=== PATIENT | male | born 1990 | race Caucasian/White ===

== ENCOUNTER 2018-04-03 09:23 | Emergency (ER) | payer MEDICAID ==
[~2018-04-03] VITALS: Ht 177.8 cm; Wt 62.6 kg
[2018-04-03] MEDS ORDERED: ALBU90OI61 INH (10:14)
[2018-04-03] MEDS ORDERED: ALBU90OI INH (11:06)
[2018-04-03] MEDS ORDERED: PRED20 PO (11:06)
== END 2018-04-03 11:12 | disposition home or self-care (01) ==
LOC: ER 09:23
DX: J45.901 Unspecified asthma with (acute) exacerbation (principal)
CPT/HCPCS: 99284

== ENCOUNTER 2018-04-16 12:05 | Emergency (ER) | payer OTHER ==
[~2018-04-16] VITALS: Ht 175.3 cm; Wt 63.5 kg
[~2018-04-16 12:05] MED LIST: ALBU90OI INH; ALBU90OI61 INH; PRED20 PO
== END 2018-04-16 14:12 | disposition home or self-care (01) ==
LOC: ER 12:05
DX: S87.82XA Crushing injury of left lower leg, initial encounter (principal); J45.909 Unspecified asthma, uncomplicated; Z87.891 Personal history of nicotine dependence; W23.0XXA Caught, crushed, jammed, or pinched between moving objects, initial encounter
CPT/HCPCS: 73590; 99283-25

== ENCOUNTER 2021-10-19 09:36 | Emergency (ER) | payer OTHER ==
[~2021-10-19] VITALS: Ht 177.8 cm; Wt 68.0 kg
[2021-10-19 10:50] LABS: BASOPHILS PERCENT AUTO 1 % (0-2); EOSINOPHILS ABSOLUTE AUTO 0.58 K/mm3 (0.00-0.68); EOSINOPHILS PERCENT AUTO 7 % (0-6); Hemoglobin 14.3 g/dL (13.5-17.5); IMMATURE GRAN ABSOLUTE AUTO 0.03 K/mm3 (0.00-0.10); IMMATURE GRAN PERCENT AUTO 0 % (0-1); LYMPHOCYTES ABSOLUTE AUTO 1.61 K/mm3 (0.84-5.20); LYMPHOCYTES PERCENT AUTO 20 % (21-46); MONOCYTES ABSOLUTE AUTO 0.69 K/mm3 (0.16-1.47); MONOCYTES PERCENT AUTO 9 % (4-13); Mean Corpuscular HGB 29.9 pg (26.0-34.0); Mean Corpuscular Volume 88 fL (80-100); Mean Platelet Volume 9.5 fL (9.1-12.4); NEUTROPHILS PERCENT AUTO 63 % (41-73); Platelet Count 259 K/mm3 (150-400); RDW Coefficient Variation 12.4 % (11.7-14.2); Red Blood Cell Count 4.79 M/mm3 (4.30-5.90); White Blood Cell Count 8.01 K/mm3 (4.00-11.30)
[2021-10-19 11:15] LABS: Albumin, Blood 3.7 g/dL (3.4-5.0); Albumin/Globulin Ratio 1.1 (0.8-1.8); Bilirubin, Total 0.5 mg/dL (0.1-1.0); Bun/Creatinine Ratio 14.2 (12.0-20.0); Calcium, Blood 8.6 mg/dL (8.5-10.1); Creatinine, Blood 1.06 mg/dL (0.60-1.20); Globulin, Blood 3.4 g/dL (2.2-4.0); Potassium, Blood 4.1 mmol/L (3.5-5.5); Total Protein, Blood 7.1 g/dL (6.4-8.2)
[2021-10-19] MEDS ORDERED: ONDA4ODT MM (11:57)
[2021-10-19] MEDS ORDERED: MECL25 PO (11:57)
== END 2021-10-19 12:06 | disposition home or self-care (01) ==
LOC: ER 09:36
PROVIDERS: Student in an Organized Health Care Education/Training Program
DX: J32.9 Chronic sinusitis, unspecified (principal); R42 Dizziness and giddiness; R11.0 Nausea; R68.83 Chills (without fever); R51.9 Headache, unspecified; J45.909 Unspecified asthma, uncomplicated; Z87.81 Personal history of (healed) traumatic fracture
CPT/HCPCS: 36415; 80053; 85025; A9270; J1885

== ENCOUNTER → 2021-12-30 | Outpatient (CLI) | payer OTHER ==
[~2021-12-30] MED LIST changes: +MECL25 PO; +ONDA4ODT MM
[2021-12-30 10:19] LABS: BASOPHILS PERCENT AUTO 1 % (0-2); EOSINOPHILS ABSOLUTE AUTO 0.58 K/mm3 (0.00-0.68); EOSINOPHILS PERCENT AUTO 8 % (0-6); Hematocrit 46.5 % (37.0-53.0); Hemoglobin 15.4 g/dL (13.5-17.5); IMMATURE GRAN ABSOLUTE AUTO 0.02 K/mm3 (0.00-0.10); IMMATURE GRAN PERCENT AUTO 0 % (0-1); LYMPHOCYTES ABSOLUTE AUTO 1.36 K/mm3 (0.84-5.20); LYMPHOCYTES PERCENT AUTO 20 % (21-46); MONOCYTES ABSOLUTE AUTO 0.59 K/mm3 (0.16-1.47); MONOCYTES PERCENT AUTO 9 % (4-13); Mean Corpuscular HGB 29.3 pg (26.0-34.0); Mean Corpuscular HGB Conc 33.1 g/dL (31.5-36.5); Mean Corpuscular Volume 89 fL (80-100); Mean Platelet Volume 9.6 fL (9.1-12.4); NEUTROPHILS ABSOLUTE AUTO 4.28 K/mm3 (1.96-9.15); NEUTROPHILS PERCENT AUTO 62 % (41-73); Platelet Count 274 K/mm3 (150-400); RDW Coefficient Variation 12.2 % (11.7-14.2); RDW Standard Deviation 39.8 fL (35.1-46.3); Red Blood Cell Count 5.25 M/mm3 (4.30-5.90); White Blood Cell Count 6.93 K/mm3 (4.00-11.30)
[2021-12-30 10:43] LABS: Albumin/Globulin Ratio 1.1 (0.8-1.8); Bilirubin, Total 0.4 mg/dL (0.1-1.0); Bun/Creatinine Ratio 15.4 (12.0-20.0); Calcium, Blood 9.2 mg/dL (8.5-10.1); Creatinine, Blood 1.04 mg/dL (0.60-1.20); Globulin, Blood 3.6 g/dL (2.2-4.0); Potassium, Blood 4.4 mmol/L (3.5-5.5); Total Protein, Blood 7.6 g/dL (6.4-8.2)
== END ==
LOC: LAB SHORT 09:07 → LAB 09:07
PROVIDERS: Nurse Practitioner Family
DX: R42 Dizziness and giddiness (principal); R31.9 Hematuria, unspecified
CPT/HCPCS: 80053; 83690; 83735; 85025; 87086

== ENCOUNTER → 2023-12-29 | Outpatient (CLI) | payer OTHER ==
[~2023-12-29] MED LIST changes: +CLAR500CR; +EFFEXOR XR37.5 MG PO; +ESCI20 PO; +HYDROXYZINE PAM25 MG PO
[2023-12-29 09:30] LABS: BASOPHILS ABSOLUTE AUTO 0.13 K/mm3 (0.00-0.23); BASOPHILS PERCENT AUTO 2 % (0-2); EOSINOPHILS ABSOLUTE AUTO 0.37 K/mm3 (0.00-0.68); EOSINOPHILS PERCENT AUTO 5 % (0-6); Hematocrit 46.4 % (37.0-53.0); Hemoglobin 16.5 g/dL (13.5-17.5); IMMATURE GRAN ABSOLUTE AUTO 0.03 K/mm3 (0.00-0.10); IMMATURE GRAN PERCENT AUTO 0 % (0-1); LYMPHOCYTES ABSOLUTE AUTO 1.85 K/mm3 (0.84-5.20); LYMPHOCYTES PERCENT AUTO 24 % (21-46); MONOCYTES ABSOLUTE AUTO 0.83 K/mm3 (0.16-1.47); MONOCYTES PERCENT AUTO 11 % (4-13); Mean Corpuscular HGB Conc 35.6 g/dL (31.5-36.5); Mean Corpuscular Volume 90 fL (80-100); NEUTROPHILS ABSOLUTE AUTO 4.63 K/mm3 (1.96-9.15); NEUTROPHILS PERCENT AUTO 59 % (41-73); Platelet Count 289 K/mm3 (150-400); RDW Coefficient Variation 12.4 % (11.7-14.2); RDW Standard Deviation 40.8 fL (35.1-46.3); Red Blood Cell Count 5.16 M/mm3 (4.30-5.90); White Blood Cell Count 7.84 K/mm3 (4.00-11.30)
[2023-12-29 09:39] LABS: Albumin, Blood 4.4 g/dL (3.4-5.0); Albumin/Globulin Ratio 1.1 (0.8-1.8); Bilirubin, Total 0.9 mg/dL (0.1-1.0); Bun/Creatinine Ratio 11.9 (12.0-20.0); Calcium, Blood 9.2 mg/dL (8.5-10.1); Creatinine, Blood 1.35 mg/dL (0.60-1.20); Globulin, Blood 3.9 g/dL (2.2-4.0); Potassium, Blood 3.8 mmol/L (3.5-5.5); Total Protein, Blood 8.3 g/dL (6.4-8.2)
== END | disposition home or self-care (01) ==
LOC: LAB SHORT 09:25 → LAB 09:25
PROVIDERS: Emergency Medicine
DX: R10.31 Right lower quadrant pain (principal); R31.9 Hematuria, unspecified
CPT/HCPCS: 80053; 83690; 85025; 87086

== ENCOUNTER → 2024-01-01 | Outpatient (CLI) | payer OTHER ==
[2024-01-01 18:41] LABS: Source, Urine Voided
[2024-01-01 19:46] LABS: Bacteria Rare /hpf; Squamous Epithelial Cells Rare /hpf (Few); White Blood Cells, Urine 0-2 /hpf (0-5)
== END ==
LOC: LAB SHORT 18:39 → LAB 18:39
PROVIDERS: Family Medicine
DX: R31.29 Other microscopic hematuria (principal)
CPT/HCPCS: 81015

== ENCOUNTER → 2024-01-05 | Outpatient (CLI) | payer OTHER ==
[2024-01-09 21:21] LABS: APTIMA MEDIA TYPE Urine; C. TRACHOMATIS BY TMA Negative (Negative); N. GONORRHOEAE BY TMA Negative (Negative); SPECIMEN SOURCE Urine
== END ==
LOC: LAB 09:05 → LAB SHORT 09:05
PROVIDERS: Family Medicine
DX: N50.9 Disorder of male genital organs, unspecified (principal)
CPT/HCPCS: 86592; 87491; 87591

== ENCOUNTER 2024-04-08 15:35 | Observation (INO) | payer OTHER ==
[2024-04-08] VITALS (11 sets, daily range): BP systolic 114–136; BP diastolic 63–84
[~2024-04-08] VITALS: Ht 177.8 cm; Wt 67.1 kg
[~2024-04-08 15:35] MED LIST changes: -ATOMOXETINE HCL80 M1 PO; -OXYC5 PO; -QUETIAPINE FUM200 M6 PO
[2024-04-08] MEDS ORDERED: HYDROmorphone HCl/Pf 1MG SYR IV ONE (16:15)
[2024-04-08] MEDS ORDERED: Ampicillin Sod/Sulbactam Sod 3 GM in NS 100 ML IV ONE (16:15)
[2024-04-08] MEDS ORDERED: NS 1,000 ML IV SCH (16:15)
[2024-04-08] MEDS ORDERED: Droperidol 5 mg/2 ml Vial IV ONE (16:15)
[2024-04-08] MEDS ORDERED: Lactated Ringer's 1,000 ML IV SCH ×2 (17:25→19:00)
[2024-04-08] MEDS ORDERED: ATOMOXETINE HCL80 M1 PO (18:03)
[2024-04-08] MEDS ORDERED: QUETIAPINE FUM200 M6 PO (18:05)
[2024-04-08] MEDS ORDERED: Bupivacaine 0.5% HCl 5 MG/ML 30MLVIAL ONE (18:48)
[2024-04-08] MEDS ORDERED: Ondansetron HCl 2 MG / ML 2ML Vial IV PRN (19:00)
[2024-04-08] MEDS ORDERED: propofoL 20 ML IV ONE ×2 (19:02→19:31)
[2024-04-08] MEDS ORDERED: Rocuronium Bromide 10 MG/ML 5ML Injection IV ONE ×2 (19:02→20:27)
[2024-04-08] MEDS ORDERED: Dexamethasone Sod Phos 10 MG/ML 1ML VIAL ONE (19:02)
[2024-04-08] MEDS ORDERED: Ondansetron HCl 2 MG / ML 2ML Vial ONE (19:02)
[2024-04-08] MEDS ORDERED: FentaNYL Citrate 50 MCG/ML 2 ML Injection ONE (19:03)
[2024-04-08] MEDS ORDERED: Midazolam HCl 1MG / ML 2ML Vial ONE (19:03)
[2024-04-08] MEDS ORDERED: OxyCODONE HCL 5 MG TAB PO PRN (19:05)
[2024-04-08] MEDS ORDERED: HYDROmorphone HCl/Pf 1MG SYR IV PRN (19:05)
[2024-04-08] MEDS ORDERED: FLU VACC TS2024-25(6MOS UP)/PF 45 MCG/0.5 ML SYRINGE IM SCH (19:05)
[2024-04-08] MEDS ORDERED: Acetaminophen 325 MG TABLET PO PRN (19:05)
[2024-04-08] MEDS ORDERED: HydrOXYzine Pamoate 25 MG Cap PO PRN (19:10)
[2024-04-08] MEDS ORDERED: Ketorolac Tromethamine 15mg Vial IV PRN (19:10)
[2024-04-08] MEDS ORDERED: HYDROmorphone HCl/Pf 1MG SYR ONE (19:48)
--- NOTE | 2024-04-08 19:58 | NUR ---
04/08/241957 Marissa Lopes NO PREOP ANTIBIOTICS ORDERED PER , PATIENT RECEIVED IV UNASYN IN ER.
[2024-04-08] MEDS ORDERED: Sugammadex Sodium 200 MG/2ML SDV (100 MG/ML) ONE (20:13)
--- NOTE | 2024-04-08 21:00 | NUR ---
ARRIVAL TO UNIT PT ARRIVED TO UNIT VIA GOURNEY. A&O x4. PT ABLE TO IND AMBULATE TO BED. VSS. PT REPORTS PAIN 2/10 IN ABD AREA. SABINE CLEAR LIQUID DIET, DENIES N/V. LAP SITE x4 c EXOFIN C/D/I. FAMILY @ BEDSIDE. ORIENTED TO UNIT, CALL LIGHT IN REACH.
[2024-04-09] VITALS: BP 126/67
[2024-04-09 03:42] VITALS: BP 130/75
--- NOTE | 2024-04-09 04:25 | NUR ---
SHIFT SUMMARY POD 1 LAP APPY. NO ACUTE CHANGES OVERNIGHT. VSS. TOLERATING ORALS, DENIES NAUSEA. LAP SITE x4 c EXOFIN C/D/I. VOIDING. AMBULATES IND IN ROOM. PT REPORTS PAIN TOLERABLE, MEDICATED PER EMAR. ANTICIPATED DISCHARGE LATER TODAY. CALL LIGHT IN REACH, BED IN LOWEST POSITION, WILL REPORT TO DAY RN.
[2024-04-09 07:30] VITALS: BP 125/77
[2024-04-09] MEDS ORDERED: Enoxaparin 40 MG/0.4 ML SYR SC SCH (09:00)
[2024-04-09] MEDS ORDERED: Atomoxetine HCL 40 MG Cap PO SCH (09:00)
[2024-04-09] MEDS ORDERED: OXYC5 PO (09:18)
[2024-04-09 10:01] VITALS: BP 139/87
--- NOTE | 2024-04-09 10:13 | NUR ---
DISCHARGED VSS. DC'D IV, CATHETER INTACT. REVIEWED DC INSTRUCTIONS W/PT; VERBALIZED UNDERSTANDING. PT LEFT UNIT IN WC W/POSSESSIONS AND DC INSTRUCTIONS IN HAND TO MEET RIDE AT PATIENT ENTRANCE.
[2024-04-09] MEDS ORDERED: QUEtiapine Fumarate 200 MG Tab PO SCH (18:00)
== END 2024-04-09 10:12 | disposition home or self-care (01) ==
LOC: ER 15:35 → SURS 18:00
PROVIDERS: ADMIT Surgery
PROC: 0DTJ0ZZ Resection of Appendix, Open Approach (ICD-10-PCS; principal; 2024-04-08 17:00)
DX: R10.84 Generalized abdominal pain (principal); K35.80 Unspecified acute appendicitis; F90.9 Attention-deficit hyperactivity disorder, unspecified type; Q53.212 Bilateral inguinal testes; K59.00 Constipation, unspecified; Z79.899 Other long term (current) drug therapy
CPT/HCPCS: 74022; 74177; 80053; 83690; 84484; 85025; 88304; 96374; 96375; 99284-25; A9270; J0295; J1100; J1171; J1650; J1885; J2250; J2405; J2704; J3010; J7030; J7120; Q9967

== ENCOUNTER → 2024-04-08 | Outpatient (CLI) | payer OTHER ==
[~2024-04-08] MED LIST changes: +ATOMOXETINE HCL80 M1 PO; +OXYC5 PO; +QUETIAPINE FUM200 M6 PO
[2024-04-08 10:56] LABS: BASOPHILS ABSOLUTE AUTO 0.14 K/mm3 (0.00-0.23); BASOPHILS PERCENT AUTO 1 % (0-2); EOSINOPHILS ABSOLUTE AUTO 0.42 K/mm3 (0.00-0.68); EOSINOPHILS PERCENT AUTO 2 % (0-6); Hematocrit 45.8 % (37.0-53.0); Hemoglobin 16.2 g/dL (13.5-17.5); IMMATURE GRAN ABSOLUTE AUTO 0.12 K/mm3 (0.00-0.10); IMMATURE GRAN PERCENT AUTO 1 % (0-1); LYMPHOCYTES ABSOLUTE AUTO 1.32 K/mm3 (0.84-5.20); LYMPHOCYTES PERCENT AUTO 7 % (21-46); MONOCYTES ABSOLUTE AUTO 1.06 K/mm3 (0.16-1.47); MONOCYTES PERCENT AUTO 6 % (4-13); Mean Corpuscular HGB 31.8 pg (26.0-34.0); Mean Corpuscular HGB Conc 35.4 g/dL (31.5-36.5); Mean Corpuscular Volume 90 fL (80-100); Mean Platelet Volume 9.2 fL (9.1-12.4); NEUTROPHILS ABSOLUTE AUTO 14.83 K/mm3 (1.96-9.15); NEUTROPHILS PERCENT AUTO 83 % (41-73); Platelet Count 348 K/mm3 (150-400); RDW Coefficient Variation 12.4 % (11.7-14.2); RDW Standard Deviation 40.9 fL (35.1-46.3); Red Blood Cell Count 5.09 M/mm3 (4.30-5.90); White Blood Cell Count 17.89 K/mm3 (4.00-11.30)
[2024-04-08 11:07] LABS: Albumin, Blood 4.7 g/dL (3.4-5.0); Albumin/Globulin Ratio 1.2 (0.8-1.8); Bun/Creatinine Ratio 10.5 (12.0-20.0); Calcium, Blood 10.6 mg/dL (8.5-10.1); Creatinine, Blood 1.52 mg/dL (0.60-1.20); Potassium, Blood 4.2 mmol/L (3.5-5.5); Total Protein, Blood 8.7 g/dL (6.4-8.2)
== END | disposition home or self-care (01) ==
LOC: LAB SHORT 10:52
PROVIDERS: Physician Assistant Medical
DX: R10.84 Generalized abdominal pain (principal); R07.9 Chest pain, unspecified
CPT/HCPCS: 80053; 83690; 84484; 85025

== ENCOUNTER → 2024-05-10 | Outpatient (CLI) | payer OTHER ==
[~2024-05-10] MED LIST changes: +ATOMOXETINE HCL80 M1 PO; +OXYC5 PO; +QUETIAPINE FUM200 M6 PO
[2024-05-10 14:15] LABS: CHOL/HDL RATIO 2.1; Cholesterol 115 mg/dL (50-200); HDL Cholesterol 55 mg/dL (>39); LDL/HDL RATIO 0.8; Low Density Lipoprotein Chol 42 mg/dL (0-110); Triglycerides 91 mg/dL (30-140); Very Low Density Lipoprot Chol 18 mg/dL (6-28)
== END | disposition home or self-care (01) ==
LOC: LAB SHORT 12:35 → LAB 12:35
PROVIDERS: Student in an Organized Health Care Education/Training Program
DX: F41.1 Generalized anxiety disorder (principal)
CPT/HCPCS: 80061; 83036